=== PATIENT | female | born 1985 | race Caucasian/White ===

== ENCOUNTER → 2021-11-05 | Day surgery (SDC) | payer OTHER ==
[2021-11-05 12:06] VITALS: BP 134/88
== END | disposition home or self-care (01) ==
LOC: SURG 10:53
PROVIDERS: ATTEND Anesthesiology
DX: M79.18 Myalgia, other site (principal); M47.812 Spondylosis without myelopathy or radiculopathy, cervical region; M50.30 Other cervical disc degeneration, unspecified cervical region; M79.10 Myalgia, unspecified site; Z79.899 Other long term (current) drug therapy
CPT/HCPCS: 20553; A4209; A4657; A4930